=== PATIENT | male | born 1955 | race Caucasian/White ===

== ENCOUNTER → 2019-11-25 | Outpatient (CLI) | payer MEDICARE ==
--- NOTE | 2019-11-25 12:41 | RADIOLOGY REPORT (SQ) ---
EXAM DESCRIPTION: CHEST PA/LATERAL COMPLETED DATE/TIME: 11/25/2019 12:12 pm REASON FOR STUDY: CHEST PAIN, UNSPECIFIED COMPARISON: None. EXAM PARAMETERS: NUMBER OF VIEWS: two views TECHNIQUE: PA and lateral views of the chest were obtained. RADIATION DOSE: NA LIMITATIONS: none FINDINGS: LUNGS AND PLEURA: The flattening of the hemidiaphragms and the increased AP diameter of th e thorax on the lateral view are suggestive of COPD. There is no acute consolidation, sizeable pleur al effusion, or pneumothorax. MEDIASTINUM AND HILAR STRUCTURES: No mediastinal or hilar contour abnormality. HEART AND VASCULAR STRUCTURES: The cardiac silhouette and pulmonary vasculature are within normal perdomo its. BONES: Levoconvex scoliotic curvature of the lumbar spine. HARDWARE: None in the chest. OTHER: No other findings. IMPRESSION: Probable findings of COPD without a superimposed acute cardiopulmonary process. TECHNICAL DOCUMENTATION: JOB ID: [id number] 2010 [employer]- All Rights Reserved Reading location - IP/workstation name: [email or web address]
== END ==
LOC: OD 11:44
PROVIDERS: ATTEND Physician Assistant
DX: R07.9 Chest pain, unspecified (principal)
CPT/HCPCS: 71046

== ENCOUNTER → 2019-12-16 | Outpatient (CLI) | payer MEDICARE ==
[~2019-12-16] MED LIST: REGADENOSON INJ 0.4 MG/5 ML DISP.SYRIN IV ONE
--- NOTE | 2019-12-16 12:34 | XCELERA REPORT ---
[address] [address] Transthoracic Echocardiogram Report Name: NEMO HECK Age: 64 yrs Gender: Male : 1955 Patient Status: Outpatient Patient Location: RAD Study Date: 12/16/2019 10:11 AM History: Chest pain Height: 72 in Weight: 197 lb BSA: 2.1 m2 Procedure: A complete two-dimensional transthoracic echocardiogram was performed (2D, M-mode, spectral and color flow Doppler). The study was technically adequate with some images being suboptimal in quality. Reason For Study: SOB Previous Evaluation: No previous studies were available. History: Chest pain. Dyslipidemia. Ordering Physician: LOLA PETTY Performed By: Martha Guerrero Interpretation Summary Left ventricular systolic function is normal. The Ejection Fraction estimate is 55-60% The right ventricular systolic function is normal. There is a trace amount of mitral regurgitation There is a trace amount of tricuspid regurgitation There is no pericardial effusion. MMode/2D Measurements & Calculations RVDd: 3.7 cm LVIDd: 5.2 cm FS: 34.9 % Ao root diam: 3.3 cm IVSd: 1.1 cm LVIDs: 3.4 cm EDV(Teich): 128.6 ml Ao root area: 8.8 cm2 LVPWd: 0.97 cm ESV(Teich): 46.6 ml LA dimension: 4.5 cm EF(Teich): 63.8 % Doppler Measurements & Calculations MV E max justen: MV P1/2t max justen: Ao V2 max: LV V1 max P.8 cm/sec 80.6 cm/sec 131.7 cm/sec 5.1 mmHg MV A max justen: MV P1/2t: 78.1 msec Ao max P.9 mmHgLV V1 max: 57.1 cm/sec MVA(P1/2t): 2.8 cm2 113.1 cm/sec MV E/A: 1.4 MV dec slope: 302.3 cm/sec2 MV dec time: 0.25 sec PA V2 max: TR max justen: MV P1/2t-pr_phl: 101.7 cm/sec 262.0 cm/sec 78.1 msec PA max P.1 mmHgTR max P.5 mmHg Left Ventricle The left ventricle is grossly normal size. There is mild concentric left ventricular hypertrophy. Left ventricular systolic function is normal. The Ejection Fraction estimate is 55-60%. Doppler measurements suggest pseudonormalized left ventricular relaxation, which is associated with grade II/IV or mild to moderate diastolic dysfunction. There is inferior wall mild hypokinesis. Right Ventricle The right ventricle is normal in size and function. The right ventricular systolic function is normal. Atria The right atrium is normal. Borderline left atrial enlargement. The interatrial septum is intact with no evidence for an atrial septal defect. Mitral Valve The mitral valve is grossly normal. There is a trace amount of mitral regurgitation. Aortic Valve The aortic valve is not well visualized secondary to technical limitations. The aortic valve opens well. There is no aortic valve stenosis. No aortic regurgitation is present. Tricuspid Valve The tricuspid valve is not well visualized, but is grossly normal. There is a trace amount of tricuspid regurgitation. Tricuspid regurgitation jet envelope not well defined to measure RV systolic pressure accurately. Great Vessels The aortic root is normal size. Effusions There is no pericardial effusion. : LOLA PETTY Anil
--- NOTE | 2019-12-16 13:27 | DRAGON STRESS TEST REPORT ---
Regadenoson nuclear stress test Date: December 16, 2019 Indication: Chest pain Referring: Lynne Dickerson MD Clinical history 64-year-old male with dyslipidemia with stable angina. Procedure Patient presented to the stress lab. Initially rest images were obtained according to standard protocol after injection of 13.83 mCi of technetium 99m sestamibi. Subsequently the patient underwent pharmacological stress with injection of regadenoson 0.4 mg IV per protocol. Subsequently the patient was injected with 41.7 mCi of technetium 99m sestamibi per protocol. EKG and vital signs were monitored throughout the procedure. Patient did not develop chest pain. Presenting EKG showed sinus rhythm at 76 bpm. There was no evidence for myocardial ischemia both by pharmacological stress. Occasional PVCs were noted. After a period of waiting per protocol stress images were obtained. There are rest as well as stress images were reviewed. The images show uptake which did not interfere with the quality of the study. Motion correction was applied. Attenuation correction is not available. The images show a medium to large size, moderate intensity reversible defect in the inferior wall as well as the apex. The calculated ejection fraction is 60%. There is mild inferior wall hypokinesis. The TID ratio is 1.02. Conclusion Stress EKG does not show any evidence of myocardial ischemia provoked by regadenoson Myocardial perfusion images show a large sized, moderate intensity reversible defect in the inferior wall as well as the apex which could represent ischemia in the RCA /Left Circumflex distribution. The calculated ejection fraction is 60%. There is mild inferior wall hypokinesis Recommendation The results of the stress test were discussed with the patient. The test results are indicative of myocardial ischemia as cause of chest pain. Ideally a cardiac catheterization should follow. Due to ongoing COVID viral pandemic with restrictions on nonemergent procedures, a trial of medical therapy will be instituted for this patient as per recommendation with interventional cardiology at [facility]. Aspirin 81 mg daily, atorvastatin 80 mg daily, metoprolol tartrate 12.5 mg twice daily, Imdur 30 mg once daily-these prescriptions have been called in and the patient has been instructed to take these. We will arrange for follow-up visit on a weekly basis to assess response to medical therapy. The above results were discussed with the patient on the telephone and all questions were answered. Prescriptions will be called in today. Cc: Lynne Dickerson MD [facility]
== END ==
LOC: RAD 06:40
PROVIDERS: ATTEND Internal Medicine
DX: I25.9 Chronic ischemic heart disease, unspecified (principal); R06.02 Shortness of breath; R07.89 Other chest pain
CPT/HCPCS: 93306; 93017; 78452; A9500; J2785; Q9969

== ENCOUNTER 2019-12-22 19:00 | Observation (INO) | payer MEDICARE ==
--- NOTE | 2019-12-22 19:16 | ER Document Report ---
ED Medical Screen (RME) - General Chief Complaint: Chest Pain Stated Complaint: CHEST PAIN, HEADACHE,VOMITING Primary Care Provider: LOLA PETTY MD [Primary Care Provider] - Follow up as needed Notes: Patient is 64-year-old white male with a past medical history of chronic pain who was recently seen by incinerator operator Dr. Petty and started on isosorbide mononitrate in relation to a abnormal stress test. Patient states since he started taking the medications he has been having bad headaches, dizzy spells and pains in the chest. He called Dr. Petty's office today and left a message but has not heard back, states he could not wait so he came for further evaluation. I have treated and performed a rapid initial assessment of this patient. A comprehensive ED assessment and evaluation of the patient, analysis of test results and completion of medical decision making process will be conducted by additional ED providers. PHYSICAL EXAMINATION: GENERAL: Well-appearing, well-nourished and in no acute distress. A&Ox4. Answers questions appropriately. - Related Data Allergies/Adverse Reactions: No Known Allergies Allergy (Unverified 12/22/19 19:15) Physical Exam - Vital signs Vitals: Temp Pulse Resp BP Pulse Ox 98.6 F 65 18 145/85 H 97 12/22/19 19:10 12/22/19 19:10 12/22/19 19:10 12/22/19 19:10 12/22/19 19:10 Course - Vital Signs Vital signs: Temp Pulse Resp BP Pulse Ox 98.6 F 65 18 145/85 H 97 12/22/19 19:10 12/22/19 19:10 12/22/19 19:10 12/22/19 19:10 12/22/19 19:10 Doctor's Discharge - Discharge Referrals: LOLA PETTY MD [Primary Care Provider] - Follow up as needed
--- NOTE | 2019-12-22 19:17 | EKG REPORT ---
SEVERITY:- NORMAL ECG - SINUS RHYTHM : Confirmed by: Eliazar Conley MD 22-Dec-2019 19:16:29
[2019-12-22 19:44] LABS: ABSOLUTE EOSINOPHILS # (AUTO) 0.1 10^3/uL (0.0-0.6); ABSOLUTE MONOCYTES (AUTO) 0.3 10^3/uL (0.1-1.4); ABSOLUTE NEUT (AUTO) 4.1 10^3/uL (1.7-8.2); BASOPHILS % (AUTO) 0.4 % (0-2); EOSINOPHILS % (AUTO) 1.1 % (0-6); HEMATOCRIT 42.1 % (37.9-51.0); HEMOGLOBIN 14.6 g/dL (13.5-17.0); LYMPHOCYTES % (AUTO) 18.4 % (13-45); MEAN CORPUSCULAR HEMOGLOBIN 30.6 pg (27.0-33.4); MEAN CORPUSCULAR HGB CONC 34.7 g/dL (32.0-36.0); MEAN CORPUSCULAR VOLUME 88 fl (80-97); MONOCYTES % (AUTO) 5.1 % (3-13); PLATELET COUNT 132 10^3/uL (150-450); RED BLOOD COUNT 4.77 10^6/uL (4.35-5.55); RED CELL DISTRIBUTION WIDTH 13.8 % (11.5-14.0); TOTAL CELLS COUNTED % (AUTO) 100 %; WHITE BLOOD COUNT 5.4 10^3/uL (4.0-10.5)
[2019-12-22 20:01] LABS: ALBUMIN 4.7 g/dL (3.5-5.0); ALKALINE PHOSPHATASE 39 U/L (38-126); ANION GAP 5 (5-19); ASPARTATE AMINO TRANSFERASE 42 U/L (17-59); BILIRUBIN,TOTAL 0.8 mg/dL (0.2-1.3); BLOOD UREA NITROGEN 19 mg/dL (7-20); CALCIUM 9.7 mg/dL (8.4-10.2); CARBON DIOXIDE 31 mmol/L (22-30); CHLORIDE 101 mmol/L (98-107); GLUCOSE 106 mg/dL (75-110); POTASSIUM 4.3 mmol/L (3.6-5.0); TOTAL PROTEIN 7.2 g/dL (6.3-8.2)
[2019-12-22] MEDS ORDERED: ISOSORBIDE MONONITRATE 30 MG TAB.ER.24H PO ONE (20:47)
[2019-12-22] MEDS ORDERED: METOPROLOL TARTRATE 25 MG TABLET PO ONE (20:47)
[2019-12-22] MEDS ORDERED: ASPIRIN 81 MG TABLET, CHEWABLE PO ONE (21:06)
--- NOTE | 2019-12-22 21:07 | ER Document Report ---
Entered by QIAN HALL SCRIBE 12/22/192021 Acting as scribe for:MAKAYLA BUCKNER IV, MD ED General - General Chief Complaint: Chest Pain Stated Complaint: CHEST PAIN, HEADACHE,VOMITING Time Seen by Provider: 12/22/19 20:20 Primary Care Provider: LOLA PETTY MD [ACTIVE STAFF] - Follow up as needed Mode of Arrival: Ambulatory Information source: Patient Notes: This 64 year old male patient with a history of dyslipidemia and stable angina presents to the ED today with complaints of chest pain with associated headache nausea, and dizziness for the past x3-4 days. Patient states that the onset of the chest pain is conditional, reporting that it comes and goes with exertion, at rest, or even eating. Patient was seen by his wire worker Dr. Petty on 12/16/19 and had a cardiolite stress test done that revealed ischemia in the RCA/Left Circumflex distribution with a calculated ejection fraction of 60%. Due to the ongoing Covid- pandemic with restrictions on nonemergent procedures, the patient was started on a trial of medical therapy that included Aspirin 81 mg qd, Atorvastatin 80 mg qd, Metoprolol Tartrate 12.5 mg bid, and Imdur 30 qd. He states that he has been having these symptoms despite the medical therapy he was started on. He reports that he is chest pain free at this time. Denies taking any NTG or pain medications prior to arrival. - Related Data Allergies/Adverse Reactions: No Known Allergies Allergy (Unverified 12/22/19 19:15) Home Medications: isosorbide 30mg Past Medical History - General Information source: Patient - Social History Smoking Status: Never Smoker Cigarette use (# per day): No Chew tobacco use (# tins/day): No Smoking Education Provided: No Frequency of alcohol use: None Drug Abuse: None Lives with: Spouse/Significant other Family History: Reviewed & Not Pertinent Patient has suicidal ideation: No Patient has homicidal ideation: No - Past Medical History Cardiac Medical History: Reports: Hx Coronary Artery Disease, Other - Hx Dyslipidemia, Hx Stable Angina Review of Systems - Review of Systems Constitutional: No symptoms reported EENT: No symptoms reported Cardiovascular: See HPI, Chest pain, Dizziness Respiratory: No symptoms reported Gastrointestinal: See HPI, Nausea Genitourinary: No symptoms reported Male Genitourinary: No symptoms reported Musculoskeletal: No symptoms reported Skin: No symptoms reported Hematologic/Lymphatic: No symptoms reported Neurological/Psychological: See HPI, Headaches -: Yes All other systems reviewed and negative Physical Exam - Vital signs Vitals: Temp Pulse Resp BP Pulse Ox 98.6 F 65 18 145/85 H 97 12/22/19 19:10 12/22/19 19:10 12/22/19 19:10 12/22/19 19:10 12/22/19 19:10 Interpretation: Normal - General General appearance: Alert In distress: None - HEENT Head: Normocephalic, Atraumatic Eyes: Normal Pupils: PERRL - Respiratory Respiratory status: No respiratory distress Chest status: Nontender Breath sounds: Normal Chest palpation: Normal - Cardiovascular Rhythm: Regular Heart sounds: Normal auscultation Murmur: No Friction rub: No Gallop: None auscultated - Abdominal Inspection: Normal Distension: No distension Bowel sounds: Normal Tenderness: Nontender - Abdomen soft Organomegaly: No organomegaly - Back Back: Normal, Nontender - Extremities General upper extremity: Normal inspection General lower extremity: Normal inspection - Neurological Neuro grossly intact: Yes - Psychological Associated symptoms: Normal affect, Normal mood - Skin Skin Temperature: Warm Skin Moisture: Dry Skin Color: Normal Course - Re-evaluation Re-evalutation: 12/22/19 20:58 Results of ED MSE discussed with patient. Conversation with Dr. Petty with cardiology also discussed with patient. Will increase the patient's Imdur to 60 mg and metoprolol to 25 mg. Discussed overnight observation for chest pain rule out with the patient he agreed to this. Dr. Will has been paged. - Vital Signs Vital signs: Temp Pulse Resp BP Pulse Ox 98.6 F 65 11 L 136/82 H 99 12/22/19 19:10 12/22/19 19:10 12/22/19 20:46 12/22/19 20:46 12/22/19 20:46 - Laboratory Result Diagrams: 12/22/19 19:25 12/22/19 19:25 Laboratory results interpreted by me: 12/22/19 12/22/19 19:25 19:25 Plt Count 132 L Carbon Dioxide 31 H - Diagnostic Test Radiology reviewed: Reports reviewed - EKG Interpretation by Me Additional EKG results interpreted by me: 12/22/19 20:59 EKG obtained on 12/22/2019 at 1906 hrs. was interpreted by this MD. findings: Normal sinus rhythm rate 62, P waves proceed QRS complexes, normal axis, QRS complex appears narrow, there are no obvious patterns of ST segment elevation or depression present to suggest acute myocardial ischemia or infarction. Impression normal sinus rhythm with nonspecific ST segments. 12/22/19 21:12 - Consults dr. lola petty Time consulted: 20:45 - Dr. Petty recommended increasing the patient's Imdur from 30 mg to 60 mg daily and metoprolol from 12.5 twice daily to 25 mg twice daily. He agreed with plan to admit the patient for a chest pain rule out and to see how he responds to the Imdur and metoprolol and if he continues to have chest pain with minimal exertion. He does not recommend adding Lovenox to the patient's regimen unless he has chest pain despite having the Imdur and metoprolol and there are increased amounts on board already or unless he has a positive troponin. Reason for consultation: 12/22/19 21:09 chest pain, abnormal stress test one week ago Consulted provider: will see as inpatient dr. heidy will Time consulted: 21:00 - Dr. Will was made aware of the recommendations for increase in Imdur, metoprolol, and use of Lovenox if needed. He agreed to admit the patient for stable angina, cycle enzymes, chest pain rule out. He is aware that Dr. Petty has been notified about the patient. Reason for consultation: 12/22/19 21:11 Chest pain, stable angina, abnormal nuclear stress test 1 week ago Consulted provider: will see as inpatient Discharge - Discharge Clinical Impression: Stable angina Condition: Good Disposition: ADMITTED INPATIENT Admitting Provider: Tuan Unit Admitted: IMCU Referrals: LOLA PETTY MD [ACTIVE STAFF] - Follow up as needed I personally performed the services described in the documentation, reviewed and edited the documentation which was dictated to the scribe in my presence, and it accurately records my words and actions.
--- NOTE | 2019-12-22 21:20 | RADIOLOGY REPORT (SQ) ---
EXAM DESCRIPTION: XR CHEST 1 VIEW COMPLETED DATE/TME: 12/22/2019 19:15 CLINICAL HISTORY: 64 years Male cp COMPARISON: 11/25/2019 FINDINGS: The cardiomediastinal silhouette appears unremarkable. No consolidating infiltrates or pleural effusions. No pneumothorax. Pulmonary hyperinflation compatible COPD. Tortuous aorta. Scoliosis in the thoracolumbar spine. IMPRESSION: No acute abnormality is identified.
[2019-12-22] MEDS: ACETAMINOPHEN 325 MG TABLET PO PRN (22:06)
[2019-12-22 22:46] LABS: ANION GAP 6 (5-19); BLOOD UREA NITROGEN 18 mg/dL (7-20); CALCIUM 9.4 mg/dL (8.4-10.2); CARBON DIOXIDE 30 mmol/L (22-30); CHLORIDE 101 mmol/L (98-107); CREATINE KINASE 143 U/L (55-170)
[2019-12-22 22:47] LABS: GLUCOSE 99 mg/dL (75-110)
[2019-12-22 22:58] LABS: TROPONIN I < 0.012 ng/mL
[2019-12-23] MEDS: ACETAMINOPHEN 325 MG TABLET PO PRN ×2 (02:15→09:08)
[2019-12-23] MEDS: NITROGLYCERIN 0.4 MG/TAB 25 TAB/BOTTLE SL PRN ×2 (02:56→07:15)
[2019-12-23 05:41] LABS: ABSOLUTE EOSINOPHILS # (AUTO) 0.1 10^3/uL (0.0-0.6); ABSOLUTE MONOCYTES (AUTO) 0.4 10^3/uL (0.1-1.4); ABSOLUTE NEUT (AUTO) 4.2 10^3/uL (1.7-8.2); BASOPHILS % (AUTO) 0.3 % (0-2); EOSINOPHILS % (AUTO) 1.3 % (0-6); HEMATOCRIT 39.5 % (37.9-51.0); HEMOGLOBIN 13.8 g/dL (13.5-17.0); LYMPHOCYTES % (AUTO) 17.8 % (13-45); MEAN CORPUSCULAR HEMOGLOBIN 30.9 pg (27.0-33.4); MEAN CORPUSCULAR VOLUME 89 fl (80-97); MONOCYTES % (AUTO) 6.2 % (3-13); PLATELET COUNT 120 10^3/uL (150-450); RED BLOOD COUNT 4.46 10^6/uL (4.35-5.55); RED CELL DISTRIBUTION WIDTH 13.9 % (11.5-14.0); SEGMENTED NEUTROPHILS % (AUTO) 74.4 % (42-78); TOTAL CELLS COUNTED % (AUTO) 100 %; WHITE BLOOD COUNT 5.7 10^3/uL (4.0-10.5)
[2019-12-23] MEDS ORDERED: PANTOPRAZOLE SODIUM 40 MG TABLET.DR PO SCH (06:00)
[2019-12-23 06:04] LABS: CREATINE KINASE MB 2.84 ng/mL (<4.55)
[2019-12-23 06:07] LABS: TROPONIN I < 0.012 ng/mL
--- NOTE | 2019-12-23 06:29 | EKG REPORT ---
SEVERITY:- OTHERWISE NORMAL ECG - SINUS BRADYCARDIA 57 : Confirmed by: Eliazar Conley MD 23-Dec-2019 06:28:05
[2019-12-23 08:19] VITALS: BP 124/80
--- NOTE | 2019-12-23 09:05 | PDOC H&P ---
History of Present Illness Admission Date/PCP: 12/22/19 21:13 KOLBY VINES MD Patient complains of: Chest pain History of Present Illness: NEMO HECK is a 64 year old male Is a 64-year-old male with a history of the hypertensions hyperlipidemia history of the chronic back pain and a chronic pain syndromes recently complaining of his chest pains was referred to the Dr. Andino . Patient have a stress test done and was abnormal. Dr. Andino try to arrange the cardiac cath but due to the ongoing pandemic unable to do the schedule cardiac cath given according to the Dr. Andino non-ST ID the discontinues the medical management Patient was put on Imdur and beta-ana and aspirin came today's with a complaining of chest pain especially when patients move and patient is also feeling some nausea In the emergency departments patient EKG and cardiac enzyme is negative Dr. Andino suggested to admit the patient's to rule out and maximize the medical treatments. Increase the Imdur makes the patient's headache patient still have a on and off chest pain with nausea feeling Patient's denied any short of breath Discussed with the patient about ongoing pandemic and discussed with the Dr. Andino is try to make the call the vidant Again for possible cardiac cath Past Medical History Cardiac Medical History: Reports: Coronary Artery Disease, Hyperlipidema, Other - Hx Dyslipidemia, Hx Stable Angina Pulmonary Medical History: Reports: Chronic Obstructive Pulmonary Disease (COPD) Musculoskeltal Medical History: Reports: Arthritis Psychiatric Medical History: Reports: Depression Social History Information Source: Patient Lives with: Spouse/Significant other Smoking Status: Former Smoker Frequency of Alcohol Use: None Hx Recreational Drug Use: No Hx Prescription Drug Abuse: No Family History Family History: Reviewed & Not Pertinent Parental Family History Reviewed: Yes Children Family History Reviewed: Yes Sibling(s) Family History Reviewed.: Yes Medication/Allergy Allergies/Adverse Reactions: No Known Allergies Allergy (Unverified 12/22/19 19:15) Review of Systems Constitutional: ABSENT: chills, fever(s), headache(s), weight gain, weight loss Eyes: ABSENT: visual disturbances Ears: ABSENT: hearing changes Cardiovascular: PRESENT: chest pain. ABSENT: dyspnea on exertion, edema, orthr opnea, palpitations Respiratory: ABSENT: cough, hemoptysis Gastrointestinal: PRESENT: nausea. ABSENT: abdominal pain, constipation, diarrhea, hematemesis, hematochezia, vomiting Genitourinary: ABSENT: dysuria, hematuria Musculoskeletal: ABSENT: joint swelling Integumentary: ABSENT: rash, wounds Neurological: ABSENT: abnormal gait, abnormal speech, confusion, dizziness, focal weakness, syncope Psychiatric: ABSENT: anxiety, depression, homidical ideation, suicidal ideation Endocrine: ABSENT: cold intolerance, heat intolerance, menstrual abnormalities, polydipsia, polyuria Hematologic/Lymphatic: ABSENT: easy bleeding, easy bruising, lymphadenopathy Physical Exam Vital Signs: Temp Pulse Resp BP Pulse Ox 97.6 F 57 L 20 124/80 100 12/23/19 02:51 12/23/19 07:14 12/23/19 02:51 12/23/19 07:14 12/23/19 02:51 Intake & Output 12/22/19 12/23/19 12/24/19 06:59 06:59 06:59 Output Total 700 Balance -700 Weight 82.9 kg General appearance: PRESENT: no acute distress, well-developed, well-nourished Head exam: PRESENT: atraumatic, normocephalic Eye exam: PRESENT: conjunctiva pink, EOMI, PERRLA. ABSENT: scleral icterus Ear exam: PRESENT: normal external ear exam Mouth exam: PRESENT: moist, tongue midline Neck exam: PRESENT: full ROM. ABSENT: carotid bruit, JVD, lymphadenopathy, thyromegaly Respiratory exam: PRESENT: clear to auscultation rudolph Cardiovascular exam: PRESENT: RRR. ABSENT: diastolic murmur, rubs, systolic murmur Pulses: PRESENT: normal dorsalis pedis pul, +2 pedal pulses bilateral Vascular exam: PRESENT: normal capillary refill GI/Abdominal exam: PRESENT: normal bowel sounds, soft. ABSENT: distended, guarding, mass, organolmegaly, rebound, tenderness Rectal exam: PRESENT: deferred Musculoskeletal exam: PRESENT: ambulatory Neurological exam: PRESENT: alert, awake, oriented to person, oriented to place, oriented to time, oriented to situation, CN II-XII grossly intact. ABSENT: motor sensory deficit Psychiatric exam: PRESENT: appropriate affect, normal mood. ABSENT: homicidal ideation, suicidal ideation Skin exam: PRESENT: dry, intact, warm. ABSENT: cyanosis, rash Results Laboratory Results: 12/23/19 04:20 12/22/19 22:05 12/22/19 12/22/1920 19:25 19:25 22:05 WBC 5.4 RBC 4.77 Hgb 14.6 Hct 42.1 MCV 88 MCH 30.6 MCHC 34.7 RDW 13.8 Plt Count 132 L Seg Neutrophils % 75.0 Sodium 137.3 137.1 Potassium 4.3 4.0 Chloride 101 101 Carbon Dioxide 31 H 30 Anion Gap 5 6 BUN 19 18 Creatinine 0.67 0.61 Est GFR ( Amer) > 60 > 60 Glucose 106 99 Calcium 9.7 9.4 Total Bilirubin 0.8 AST 42 Alkaline Phosphatase 39 Total Protein 7.2 Albumin 4.7 12/23/19 04:20 WBC 5.7 RBC 4.46 Hgb 13.8 Hct 39.5 MCV 89 MCH 30.9 MCHC 35.0 RDW 13.9 Plt Count 120 L Seg Neutrophils % 74.4 Sodium Potassium Chloride Carbon Dioxide Anion Gap BUN Creatinine Est GFR ( Amer) Glucose Calcium Total Bilirubin AST Alkaline Phosphatase Total Protein Albumin 12/22/19 12/22/19 12/22/19 19:25 22:05 22:05 Creatine Kinase 143 CK-MB (CK-2) 3.30 Troponin I < 0.012 < 0.012 12/23/19 12/23/19 04:20 04:20 Creatine Kinase 125 CK-MB (CK-2) 2.84 Troponin I < 0.012 Impressions: Chest X-Ray 12/22/19 19:15 IMPRESSION: No acute abnormality is identified. Assessment & Plan - Diagnosis (1) Chest pain Qualifiers: Ischemic chest pain type: stable angina pectoris Is this a current diagnosis for this admission?: Yes Plan: As per the cardiology's increase the Imdur but patient is causing the headaches will continues to 30 mg of Imdur continues the metoprolol aspirin discussed with the retail solar advisor no need for Lovenox therapy right now Patient have a stress test done as outpatients abnormal need a cardiac cath because of the ongoing pandemic all schedule cardiac cath was canceled Dr. Andino is trying to call the tertiary center Discussed with the patient and her (2) Nausea Is this a current diagnosis for this admission?: Yes Plan: Will continues the PPI will get the barium swallow (3) Hypertension Qualifiers: Hypertension type: essential hypertension Qualified Code(s): I10 - Essential (primary) hypertension Is this a current diagnosis for this admission?: Yes Plan: Continues to current medications (4) Hyperlipidemia Qualifiers: Hyperlipidemia type: familial hypercholesterolemia Qualified Code(s): E78.01 - Familial hypercholesterolemia Is this a current diagnosis for this admission?: Yes (5) Chronic pain syndrome Is this a current diagnosis for this admission?: Yes Plan: Is follow-up with the pain management (6) Stable angina Is this a current diagnosis for this admission?: Yes Plan: Continues follow-up with the cardiology - Time Time Spent: 50 to 70 Minutes Medications reviewed and adjusted accordingly: Yes Anticipated discharge: Home Within: Other - Inpatient Certification Based on my medical assessment, after consideration of the patient's comorbidities, presenting symptoms, or acuity I expect that the services needed warrant INPATIENT care.: Yes I certify that my determination is in accordance with my understanding of [employer] 's requirements for reasonable and necessary INPATIENT services [42 CFR 412.3e].: Yes Medical Necessity: Need Close Monitoring Due to Risk of Patient Decompensation, Need for Pain Control Post Hospital Care: D/C Nutrition Educator Documentation - Plan Summary Plan Summary: Admit the patient in IMCU see as above
[2019-12-23] MEDS ORDERED: ISOSORBIDE MONONITRATE 30 MG TAB.ER.24H PO SCH (10:00)
[2019-12-23] MEDS ORDERED: METOPROLOL TARTRATE 25 MG TABLET PO SCH (10:00)
[2019-12-23] MEDS ORDERED: ENOXAPARIN SODIUM INJ 40 MG/0.4 ML DISP.SYRIN SUBCUT SCH (10:00)
--- NOTE | 2019-12-23 10:03 | PDOC CONSULTATION ---
Consultation Consult Date: 12/23/19 Provider Consulted: LOLA PETTY Consult reason:: Chest pain History of Present Illness Admission Date/PCP: 12/22/19 21:13 KOLBY VINES MD Patient complains of: Chest pain History of Present Illness: NEMO HECK is a 64 year old male With dyslipidemia who presented with stable angina. We performed a myocardial perfusion imaging study with pharmacological stressor-regadenoson on 12/16/2019 which was abnormal and demonstrated ischemia RCA /Lcx territory. Due to ongoing viral pandemic per guidelines we decided to treat the patient medically with aspirin statin beta blockers as well as long-acting nitrates. Patient had significant GI symptoms and also headache which limited medical therapy. Patient presented yesterday evening to the hospital with worsening anginal symptoms. His EKG was nondiagnostic for myocardial ischemia and cardiac biomarkers were negative. We tried to escalate medical therapy but patient is unable to tolerate this. He is a non-smoker No familial illnesses reported No major surgeries reported. Past Medical History Cardiac Medical History: Reports: Coronary Artery Disease, Hyperlipidema, Other - Hx Dyslipidemia, Hx Stable Angina Pulmonary Medical History: Reports: Chronic Obstructive Pulmonary Disease (COPD) Musculoskeltal Medical History: Reports: Arthritis Psychiatric Medical History: Reports: Depression Social History Lives with: Spouse/Significant other Smoking Status: Former Smoker Frequency of Alcohol Use: None Hx Recreational Drug Use: No Hx Prescription Drug Abuse: No Family History Family History: Reviewed & Not Pertinent Parental Family History Reviewed: Yes - No familial illnesses Children Family History Reviewed: NA Sibling(s) Family History Reviewed.: NA Medication/Allergy Allergies/Adverse Reactions: No Known Allergies Allergy (Unverified 12/22/19 19:15) Review of Systems Constitutional: ABSENT: as per HPI, anorexia, chills, fatigue, fever(s), headache(s), night sweats, weakness, weight gain, weight loss, other Eyes: ABSENT: as per HPI, visual disturbances, other Nose, Mouth, and Throat: ABSENT: as per HPI, headache(s), mouth pain, sore throat, vertigo, other Cardiovascular: PRESENT: chest pain Respiratory: ABSENT: as per HPI, cough, dyspnea, hemoptysis, sputum, other Gastrointestinal: PRESENT: nausea Physical Exam Vital Signs: Temp Pulse Resp BP Pulse Ox 97.6 F 57 L 20 124/80 100 12/23/19 02:51 12/23/19 07:14 12/23/19 02:51 12/23/19 07:14 12/23/19 02:51 Intake & Output 12/22/19 12/23/19 12/24/19 06:59 06:59 06:59 Output Total 700 Balance -700 Weight 82.9 kg General appearance: PRESENT: no acute distress, cooperative, well-developed, well-nourished Head exam: PRESENT: atraumatic, normocephalic Eye exam: PRESENT: conjunctiva pink, EOMI Mouth exam: PRESENT: moist Respiratory exam: PRESENT: clear to auscultation rudolph, symmetrical, unlabored Cardiovascular exam: PRESENT: RRR, +S1, +S2 Pulses: PRESENT: normal radial pulses GI/Abdominal exam: PRESENT: soft Rectal exam: PRESENT: deferred Neurological exam: PRESENT: alert, awake, oriented to person, oriented to place, oriented to time Skin exam: PRESENT: dry, intact Results Laboratory Results: 12/23/19 04:20 12/22/19 22:05 12/22/19 12/22/19 12/22/19 19:25 19:25 22:05 WBC 5.4 RBC 4.77 Hgb 14.6 Hct 42.1 MCV 88 MCH 30.6 MCHC 34.7 RDW 13.8 Plt Count 132 L Seg Neutrophils % 75.0 Sodium 137.3 137.1 Potassium 4.3 4.0 Chloride 101 101 Carbon Dioxide 31 H 30 Anion Gap 5 6 BUN 19 18 Creatinine 0.67 0.61 Est GFR ( Amer) > 60 > 60 Glucose 106 99 Calcium 9.7 9.4 Total Bilirubin 0.8 AST 42 Alkaline Phosphatase 39 Total Protein 7.2 Albumin 4.7 12/23/19 04:20 WBC 5.7 RBC 4.46 Hgb 13.8 Hct 39.5 MCV 89 MCH 30.9 MCHC 35.0 RDW 13.9 Plt Count 120 L Seg Neutrophils % 74.4 Sodium Potassium Chloride Carbon Dioxide Anion Gap BUN Creatinine Est GFR ( Amer) Glucose Calcium Total Bilirubin AST Alkaline Phosphatase Total Protein Albumin 12/22/19 12/22/19 12/22/19 19:25 22:05 22:05 Creatine Kinase 143 CK-MB (CK-2) 3.30 Troponin I < 0.012 < 0.012 12/23/19 12/23/19 04:20 04:20 Creatine Kinase 125 CK-MB (CK-2) 2.84 Troponin I < 0.012 EKG Comments: Twelve-lead EKG 12/22/2019. Independently reviewed by me. Sinus rhythm, 62 bpm, normal AV conduction, QTC is 450 ms Twelve-lead EKG 12/23/2019. Independently reviewed by me. Sinus bradycardia 57 bpm, normal AV conduction, QTC is 425 ms Cardiac troponin negative x3 Chest x-ray 12/22/2019 No acute abnormality Impressions: Chest X-Ray 12/22/19 19:15 IMPRESSION: No acute abnormality is identified. Twelve-lead EKG 12/22/2019. Independently reviewed by me. Sinus rhythm, 62 bpm, normal AV conduction, QTC is 450 ms Twelve-lead EKG 12/23/2019. Independently reviewed by me. Sinus bradycardia 57 bpm, normal AV conduction, QTC is 425 ms Cardiac troponin negative x3 Chest x-ray 12/22/2019 No acute abnormality Assessment & Plan - Diagnosis (1) Stable angina Is this a current diagnosis for this admission?: Yes Plan: Patient has stable angina but this seems to be refractory to medical therapy Continue aspirin 81 mg daily Continue statin Continue beta ana with limited ability to uptitrate on account of symptoms and intolerance to medicine. Patient is presently on Imdur but unable to escalate dose due to nausea and headache Given the above will arrange for cardiac catheterization at [place]. (2) Hypertension Qualifiers: Hypertension type: essential hypertension Qualified Code(s): I10 - Essential (primary) hypertension Is this a current diagnosis for this admission?: Yes Plan: Continue present medications for systemic hypertension Blood pressure was mildly elevated at admission. We will try to uptitrate beta- ana. (3) Hyperlipidemia Qualifiers: Hyperlipidemia type: familial hypercholesterolemia Qualified Code(s): E78.01 - Familial hypercholesterolemia Is this a current diagnosis for this admission?: Yes Plan: Continue statin therapy. Preferably high-dose
--- NOTE | 2019-12-23 10:06 | PDOC TRANSFER SUMMARY ---
General Admission Date/PCP: 12/22/19 21:13 KOLBY VINES MD - Transfer Diagnosis (1) Stable angina Is this a current diagnosis for this admission?: Yes (2) Hypertension Is this a current diagnosis for this admission?: Yes (3) Hyperlipidemia Is this a current diagnosis for this admission?: Yes - Transfer Medications Transfer Medications: Current Medications Acetaminophen (Tylenol 325 Mg Tablet) 650 mg PO Q4HP PRN PRN Reason: FOR PAIN OR TEMP Stop: 01/21/20 21:04 Last Admin: 12/23/19 09:08 Dose: 650 mg Documented by: Aspirin (Ecotrin 81 Mg Ec Tablet) 81 mg PO QHS [facility] Stop: 01/22/20 21:59 Enoxaparin Sodium (Lovenox Inj 40 Mg/0.4 Ml Disp.Syrin) 40 mg SUBCUT DAILY [facility] Stop: 01/22/20 09:59 Last Admin: 12/23/19 09:10 Dose: Not Given Documented by: Isosorbide Mononitrate (Imdur 30 Mg Tablet.Er) 30 mg PO DAILY [facility] Stop: 01/22/20 09:59 Last Admin: 12/23/19 09:09 Dose: 30 mg Documented by: Metoprolol Tartrate (Lopressor 25 Mg Tablet) 25 mg PO Q12 [facility] Stop: 01/22/20 09:59 Last Admin: 12/23/19 09:09 Dose: Not Given Documented by: Nitroglycerin (Nitrostat 0.4 Mg (1/150 Gr) Tabs 25/Bottle) 1 tab SL Q5MP PRN PRN Reason: FOR CHEST PAIN Stop: 01/21/20 21:09 Last Admin: 12/23/19 07:15 Dose: 1 tab Documented by: Pantoprazole Sodium (Protonix [address] Tablet) 40 mg PO Q6AM [facility] Stop: 01/22/20 05:59 Last Admin: 12/23/19 06:08 Dose: 40 mg Documented by: - Allergies Allergies/Adverse Reactions: No Known Allergies Allergy (Unverified 12/22/19 19:15) Hospital Course Hospital Course: Patient was admitted 12/22/2019 on account of worsening stable angina. He did have an abnormal stress test which demonstrated ischemia in the RCA/left circumflex territory. Due to ongoing viral pandemic we had to treat him medically and demonstrated that his symptoms were refractory to medical therapy. I think were at that stage at the moment. Patient continues to be symptomatic despite escalation of therapy and escalation of therapy is limited in account of side effects. I had a detailed discussion with the patient regarding cardiac authorization. I discussed the procedure, expected outcome, complications and results. The procedure is fairly low risk but with obvious benefits in the current situation which outweighs the risk. Risks include but are not limited to infection, bleeding, myocardial infarction, stroke, pulmonary embolism, extremely skin funez and even . Patient understands risks and benefits and would like to proceed. His care will transport him to [place]. I have also discussed the patient's care with the spouse. Total time spent arranging for transfer to [place] and discussion with patient and family was approximately 40 minutes. Physical Exam Vital Signs: Temp Pulse Resp BP Pulse Ox 97.6 F 57 L 20 124/80 100 12/23/19 02:51 12/23/19 07:14 12/23/19 02:51 12/23/19 07:14 12/23/19 02:51 Intake & Output 12/22/19 12/23/19 12/24/19 06:59 06:59 06:59 Output Total 700 Balance -700 Weight 82.9 kg General appearance: PRESENT: no acute distress, cooperative, well-developed, well-nourished Head exam: PRESENT: atraumatic Eye exam: PRESENT: conjunctiva pink, EOMI Mouth exam: PRESENT: moist Respiratory exam: PRESENT: clear to auscultation rudolph, symmetrical, unlabored Cardiovascular exam: PRESENT: RRR, +S1, +S2 Pulses: PRESENT: normal radial pulses GI/Abdominal exam: PRESENT: soft Rectal exam: PRESENT: deferred Musculoskeletal exam: PRESENT: normal inspection Neurological exam: PRESENT: alert, awake, oriented to person, oriented to place, oriented to time, oriented to situation Psychiatric exam: PRESENT: appropriate affect Skin exam: PRESENT: dry, intact, normal color Results Laboratory Results: 12/23/19 04:20 12/22/19 22:05 12/22/19 12/22/19 12/22/19 19:25 19:25 22:05 WBC 5.4 RBC 4.77 Hgb 14.6 Hct 42.1 MCV 88 MCH 30.6 MCHC 34.7 RDW 13.8 Plt Count 132 L Seg Neutrophils % 75.0 Sodium 137.3 137.1 Potassium 4.3 4.0 Chloride 101 101 Carbon Dioxide 31 H 30 Anion Gap 5 6 BUN 19 18 Creatinine 0.67 0.61 Est GFR ([facility] Amer) > 60 > 60 Glucose 106 99 Calcium 9.7 9.4 Total Bilirubin 0.8 AST 42 Alkaline Phosphatase 39 Total Protein 7.2 Albumin 4.7 12/23/19 04:20 WBC 5.7 RBC 4.46 Hgb 13.8 Hct 39.5 MCV 89 MCH 30.9 MCHC 35.0 RDW 13.9 Plt Count 120 L Seg Neutrophils % 74.4 Sodium Potassium Chloride Carbon Dioxide Anion Gap BUN Creatinine Est GFR ( Amer) Glucose Calcium Total Bilirubin AST Alkaline Phosphatase Total Protein Albumin 12/22/19 12/22/19 12/22/19 19:25 22:05 22:05 Creatine Kinase 143 CK-MB (CK-2) 3.30 Troponin I < 0.012 < 0.012 12/23/19 12/23/19 04:20 04:20 Creatine Kinase 125 CK-MB (CK-2) 2.84 Troponin I < 0.012 Impressions: Chest X-Ray 12/22/19 19:15 IMPRESSION: No acute abnormality is identified. Plan Discharge Plan: Cardiac with sedation to be arranged in [place]. Stable angina with abnormal stress test. Patient is refractory in terms of symptoms to ongoing medical therapy. Time Spent: Greater than 30 Minutes - Patient will be transferred to [place] for cardiac catheterization.
--- NOTE | 2019-12-23 10:45 | RADIOLOGY REPORT (SQ) ---
EXAM DESCRIPTION: BARIUM SWALLOW ESOPHAGUS IMAGES COMPLETED DATE/TIME: 12/23/2019 8:37 am REASON FOR STUDY: dysphagia COMPARISON: None. TECHNIQUE: Under fluoroscopic guidance, patient ingested effervescent granules followed by thick and thin barium. Fluoroscopic spot images and routine radiographic images acquired and stored on PACS. 12 MM BARIUM TABLET GIVEN: 12 mm barium tablet passed easily through the esophagus and into the stoma ch with minimal delay. LIMITATIONS: None. FLUOROSCOPY TIME: FLUORO TIME: 2.46 minutes 5 images saved to PACS. FINDINGS: NEUROMUSCULAR COORDINATION OF SWALLOW: Normal swallow. Deep laryngeal penetration to the vocal cords noted. No aspiration identified. ESOPHAGEAL MOTILITY: Normal peristalsis. No esophageal spasm. ESOPHAGEAL MUCOSA: Normal mucosa without masses or ulceration. GASTRO-ESOPHAGEAL JUNCTION: No hiatal hernia or reflux. NON-GI TRACT STRUCTURES: No significant finding. OTHER: No other significant finding. IMPRESSION: NORMAL DOUBLE CONTRAST BARIUM SWALLOW. LARYNGEAL PENETRATION WITHOUT ASPIRATION IDENTIFIED. RECOMMENDATION: None COMMENT: None Quality ID [id number]: Final reports for procedures using fluoroscopy that document radiation exposure joyce holly, or exposure time and number of fluorographic images (if radiation exposure indices are not avail able) TECHNICAL DOCUMENTATION: JOB ID: [id number] 2010 [employer]- All Rights Reserved Reading location - IP/workstation name: [email or web address] [id number]
[2019-12-23] MEDS ORDERED: ASPIRIN 81 MG TABLET, ENT COATED PO SCH (22:00)
--- NOTE | 2019-12-23 22:41 | EKG REPORT ---
SEVERITY:- OTHERWISE NORMAL ECG - SINUS RHYTHM VENTRICULAR PREMATURE COMPLEX : Confirmed by: Jodi Biswas 23-Dec-2019 22:41:05
== END 2019-12-23 10:45 | disposition short-term general hospital (02) ==
LOC: ER 19:00 → EH 21:13 → INTOOBSV 21:13 → 3W 22:40
PROVIDERS: ADMIT Family Medicine; ATTEND Family Medicine
DX: I25.118 Atherosclerotic heart disease of native coronary artery with other forms of angina pectoris (principal); I10 Essential (primary) hypertension; E78.01 Familial hypercholesterolemia; R94.39 Abnormal result of other cardiovascular function study; R51 Headache; R00.1 Bradycardia, unspecified; G89.4 Chronic pain syndrome; M54.9 Dorsalgia, unspecified; R11.0 Nausea; M19.90 Unspecified osteoarthritis, unspecified site; Z87.891 Personal history of nicotine dependence; Z79.899 Other long term (current) drug therapy
CPT/HCPCS: 93005 ×2; 99285; 36415 ×2; 82553 ×2; 82550 ×2; 85025 ×2; 80053; 84484 ×2; 71045; 74220; 93010 ×2; A9270 ×8; J3490